=== PATIENT | female | born 1950 | race Caucasian/White ===

== ENCOUNTER 2017-09-28 13:22 | Inpatient (IN) | payer MEDICARE, MEDICAID ==
[~2017-09-28] VITALS: Ht 149.9 cm; Wt 95.0 kg
[2017-09-28 14:12] LABS: BASOPHILS % (AUTO) 0.4 % (0-1); EOSINOPHILS # (AUTO) 0.5 X10'3 (0-0.9); EOSINOPHILS % (AUTO) 5.4 % (0-6); HEMATOCRIT 25.1 % (35.0-45.0); HEMOGLOBIN 8.4 g/dl (12.0-16.0); LYMPHOCYTES # (AUTO) 2.4 X10'3 (1.1-4.8); MEAN CORPUSCULAR HEMOGLOBIN 27.7 PG (27.0-31.0); MEAN CORPUSCULAR HGB CONC 33.4 % (33.0-36.5); MEAN CORPUSCULAR VOLUME 82.8 FL (78-98); MEAN PLATELET VOLUME 7.1 FL (7.4-10.4); MONOCYTES # (AUTO) 0.7 X10'3 (0-0.9); MONOCYTES % (AUTO) 6.6 % (2-12); NEUTROPHILS # (AUTO) 6.3 X10'3 (1.8-7.7); NEUTROPHILS % (AUTO) 63.6 % (42-75); PLATELET COUNT 310 X10'3 (140-440); RED BLOOD COUNT 3.03 X10'6 (4.20-5.60); WHITE BLOOD COUNT 9.9 X10'3 (4.5-11.0)
[2017-09-28] MEDS ORDERED: normal saline 1000ML IV soln IVB ONE (14:20)
[2017-09-28 14:32] LABS: ALANINE AMINOTRANSFERASE 17 U/L (12-78); ALBUMIN 3.2 G/DL (3.4-5.0); ALBUMIN/GLOBULIN RATIO 0.9 (1.1-1.5); ALKALINE PHOSPHATASE 59 IU/L (46-116); ANION GAP 7 (8-16); ASPARTATE AMINO TRANSFERASE 11 U/L (10-37); BILIRUBIN,TOTAL 0.6 MG/DL (0.1-1.0); BLOOD UREA NITROGEN 14 MG/DL (7-18); BUN/CREATININE RATIO 16.1 (6.6-38.0); CALCIUM 8.3 MG/DL (8.5-10.1); CHLORIDE 105 MMOL/L (99-107); CREATININE 0.87 MG/DL (0.40-0.90); GLUCOSE 101 MG/DL (70-104); SODIUM 141 MMOL/L (135-145); TOTAL CARBON DIOXIDE 29.5 MMOL/L (24-32); TOTAL PROTEIN 6.9 G/DL (6.4-8.2); eGFR 65 ML/MIN
[2017-09-28 14:43] LABS: ETHANOL < 0.010 GM/DL (0.0-0.010)
[2017-09-28 15:40] LABS: COLOR,URINE YELLOW (Yellow); GLUCOSE, URINE NEGATIVE (Neg); KETONES,URINE NEGATIVE (Neg); LEUKOCYTE ESTERASE ,URINE NEGATIVE (Neg); NITRITES, URINE NEGATIVE (Neg); OCCULT BLOOD,URINE SMALL (Neg); PH,URINE 5.5 (4.8-8.0); PROTEIN,URINE NEGATIVE (Neg); UROBILINOGEN,URINE 0.2 E.U/dL (0.2-1.0)
[2017-09-28 15:41] LABS: CLARITY,URINE SLIGHTLY CLOUDY (Clear); UA COLLECTION TYPE STRAIGHT CATH
[2017-09-28 15:52] LABS: URINE AMPHETAMINE SCREEN NEGATIVE (Neg); URINE BARBITUATE SCREEN NEGATIVE (Neg); URINE BENZODIAZEPINES SCREEN NEGATIVE (Neg); URINE CANNABINOID SCREEN NEGATIVE (Neg); URINE COCAINE SCREEN NEGATIVE (Neg); URINE METHADONE SCREEN NEGATIVE (Neg); URINE OPIATE SCREEN NEGATIVE (Neg); URINE PHENCYCLIDINE SCREEN NEGATIVE (Neg)
[2017-09-28 16:00] LABS: MUCUS STRANDS FEW /LPF (Neg); SQUAMOUS EPITHELIAL CELL,UR FEW /LPF (FEW)
[2017-09-28 16:01] LABS: BACTERIA,URINE FEW /HPF (Neg); HYALINE CASTS 0-3 /LPF (NEGATIVE); RBC,URINE 0-2 /HPF (0-2); WBC,URINE 0-4 /HPF (0-4)
[2017-09-28] MEDS ORDERED: LORazepam 2 mg/ml vial IV ONE (16:40)
[2017-09-28] MEDS ORDERED: gadopentetate dimeglumine 7.5 MMOL/15 ML syringe ONE (18:10)
[2017-09-28] MEDS ORDERED: aspirin 81mg tab.chew PO ONE (18:40)
[2017-09-28] MEDS ORDERED: ondansetron/PF 4mg/2ml inj IV PRN (20:50)
[2017-09-28] MEDS ORDERED: mag hydrox/Alum hydrox/simeth 30ml oral suspension PO PRN (20:50)
[2017-09-28] MEDS ORDERED: acetaminophen 325mg tablet PO PRN (20:50)
[2017-09-28] MEDS ORDERED: magnesium hydroxide 30ml (MOM) UD suspension PO PRN (20:50)
[2017-09-28] MEDS ORDERED: normal saline 1000ml 1,000 ML IV SCH (20:50)
[2017-09-28] MEDS ORDERED: LOSA25TA96 PO (21:19)
[2017-09-28] MEDS ORDERED: ASPI-920 PO (21:19)
[2017-09-28] MEDS ORDERED: FERR325T28 PO (21:19)
[2017-09-28 22:00] VITALS: BP 171/80
[2017-09-28 23:20] LABS: HEMOGLOBIN 7.4 g/dl (12.0-16.0); MEAN CORPUSCULAR HEMOGLOBIN 27.8 PG (27.0-31.0); MEAN CORPUSCULAR HGB CONC 34.1 % (33.0-36.5); MEAN CORPUSCULAR VOLUME 81.6 FL (78-98); MEAN PLATELET VOLUME 6.9 FL (7.4-10.4); PLATELET COUNT 257 X10'3 (140-440); RED BLOOD COUNT 2.67 X10'6 (4.20-5.60); RED CELL DISTRIBUTION WIDTH 14.8 % (11.5-14.5); WHITE BLOOD COUNT 8.3 X10'3 (4.5-11.0)
[2017-09-28 23:51] LABS: HEMATOCRIT 21.8 % (35.0-45.0)
[2017-09-29] VITALS (16 sets, daily range): BP systolic 141–189; BP diastolic 68–97
[2017-09-29 06:24] LABS: BASOPHILS % (AUTO) 0.7 % (0-1); EOSINOPHILS # (AUTO) 0.5 X10'3 (0-0.9); EOSINOPHILS % (AUTO) 6.3 % (0-6); HEMOGLOBIN 7.2 g/dl (12.0-16.0); LYMPHOCYTES # (AUTO) 1.8 X10'3 (1.1-4.8); LYMPHOCYTES % (AUTO) 24.4 % (21-51); MEAN CORPUSCULAR HEMOGLOBIN 28.1 PG (27.0-31.0); MEAN CORPUSCULAR HGB CONC 33.9 % (33.0-36.5); MEAN CORPUSCULAR VOLUME 82.8 FL (78-98); MEAN PLATELET VOLUME 7.2 FL (7.4-10.4); MONOCYTES # (AUTO) 0.5 X10'3 (0-0.9); NEUTROPHILS # (AUTO) 4.5 X10'3 (1.8-7.7); NEUTROPHILS % (AUTO) 61.6 % (42-75); PLATELET COUNT 241 X10'3 (140-440); RED BLOOD COUNT 2.56 X10'6 (4.20-5.60); RED CELL DISTRIBUTION WIDTH 14.9 % (11.5-14.5); WHITE BLOOD COUNT 7.4 X10'3 (4.5-11.0)
[2017-09-29 06:30] LABS: HEMATOCRIT 21.2 % (35.0-45.0)
[2017-09-29 06:31] LABS: ALANINE AMINOTRANSFERASE 9 U/L (12-78); ALBUMIN 2.7 G/DL (3.4-5.0); ALBUMIN/GLOBULIN RATIO 0.8 (1.1-1.5); ALKALINE PHOSPHATASE 56 IU/L (46-116); ANION GAP 5 (8-16); ASPARTATE AMINO TRANSFERASE 13 U/L (10-37); BILIRUBIN,TOTAL 0.6 MG/DL (0.1-1.0); BLOOD UREA NITROGEN 12 MG/DL (7-18); BUN/CREATININE RATIO 15.2 (6.6-38.0); CALCIUM 8.2 MG/DL (8.5-10.1); CHLORIDE 108 MMOL/L (99-107); CHOL/HDL RATIO 3.9 (0.00-4.99); CHOLESTEROL 161 MG/DL (0-200); CREATININE 0.79 MG/DL (0.40-0.90); GLUCOSE 98 MG/DL (70-104); HDL CHOLESTEROL 41 MG/DL (35-60); LDL CHOLESTEROL 110 MG/DL (50-100); POTASSIUM 3.7 MMOL/L (3.5-5.1); SODIUM 142 MMOL/L (135-145); TOTAL PROTEIN 6.1 G/DL (6.4-8.2); TRIGLYCERIDES 102 MG/DL (20-135); eGFR 72 ML/MIN
[2017-09-29 07:17] LABS: HEMOGLOBIN A1C 5.7 % (4.5-6.2)
[2017-09-29] MEDS ORDERED: heparin, porcine 5000 units/ml vial SQ SCH (08:00)
[2017-09-29 11:32] LABS: HEMOGLOBIN 7.5 g/dl (12.0-16.0); MEAN CORPUSCULAR HGB CONC 34.6 % (33.0-36.5); MEAN CORPUSCULAR VOLUME 80.9 FL (78-98); MEAN PLATELET VOLUME 6.6 FL (7.4-10.4); PLATELET COUNT 267 X10'3 (140-440); RED BLOOD COUNT 2.68 X10'6 (4.20-5.60); RED CELL DISTRIBUTION WIDTH 14.6 % (11.5-14.5); WHITE BLOOD COUNT 8.3 X10'3 (4.5-11.0)
[2017-09-29 11:37] LABS: HEMATOCRIT 21.6 % (35.0-45.0)
[2017-09-29] MEDS: ferrous sulfate 325mg tablet PO SCH (18:24)
[2017-09-29] MEDS ORDERED: losartan 25mg tablet PO ONE (22:46)
[2017-09-30] VITALS (8 sets, daily range): BP systolic 151–196; BP diastolic 74–100
[2017-09-30 06:28] LABS: BASOPHILS # (AUTO) 0.1 X10'3 (0-0.2); BASOPHILS % (AUTO) 0.7 % (0-1); EOSINOPHILS # (AUTO) 0.6 X10'3 (0-0.9); EOSINOPHILS % (AUTO) 7.1 % (0-6); HEMATOCRIT 29.4 % (35.0-45.0); LYMPHOCYTES # (AUTO) 1.6 X10'3 (1.1-4.8); LYMPHOCYTES % (AUTO) 19.1 % (21-51); MEAN CORPUSCULAR HEMOGLOBIN 28.6 PG (27.0-31.0); MEAN CORPUSCULAR HGB CONC 33.9 % (33.0-36.5); MEAN CORPUSCULAR VOLUME 84.2 FL (78-98); MEAN PLATELET VOLUME 7.5 FL (7.4-10.4); MONOCYTES # (AUTO) 0.6 X10'3 (0-0.9); MONOCYTES % (AUTO) 6.5 % (2-12); NEUTROPHILS # (AUTO) 5.7 X10'3 (1.8-7.7); NEUTROPHILS % (AUTO) 66.6 % (42-75); PLATELET COUNT 246 X10'3 (140-440); RED BLOOD COUNT 3.49 X10'6 (4.20-5.60); RED CELL DISTRIBUTION WIDTH 14.5 % (11.5-14.5); WHITE BLOOD COUNT 8.6 X10'3 (4.5-11.0)
[2017-09-30 06:40] LABS: ALANINE AMINOTRANSFERASE 14 U/L (12-78); ALBUMIN/GLOBULIN RATIO 0.9 (1.1-1.5); ALKALINE PHOSPHATASE 67 IU/L (46-116); ANION GAP 8 (8-16); ASPARTATE AMINO TRANSFERASE 14 U/L (10-37); BILIRUBIN,TOTAL 1.4 MG/DL (0.1-1.0); BLOOD UREA NITROGEN 10 MG/DL (7-18); BUN/CREATININE RATIO 11.9 (6.6-38.0); CALCIUM 8.2 MG/DL (8.5-10.1); CHLORIDE 105 MMOL/L (99-107); CREATININE 0.84 MG/DL (0.40-0.90); GLUCOSE 101 MG/DL (70-104); POTASSIUM 3.5 MMOL/L (3.5-5.1); SODIUM 142 MMOL/L (135-145); TOTAL CARBON DIOXIDE 28.7 MMOL/L (24-32); TOTAL PROTEIN 6.5 G/DL (6.4-8.2); eGFR 67 ML/MIN
[2017-09-30] MEDS: losartan 25mg tablet PO SCH (07:05)
[2017-09-30] MEDS: atorvastatin 20mg tablet PO SCH (07:05)
[2017-09-30] MEDS: ferrous sulfate 325mg tablet PO SCH ×3 (07:05→17:39)
[2017-09-30] MEDS: aspirin 81mg tab.chew PO SCH (07:46)
[2017-09-30] MEDS ORDERED: lisinopril 5mg tablet PO SCH (08:00)
[2017-09-30 08:23] LABS: PARTIAL THROMBOPLASTIN TIME 25 SECONDS (22-32); PROTHROMBIN TIME 10.2 SECONDS (9.0-12.0)
[2017-09-30] MEDS ORDERED: metoprolol tartrate 25mg tablet PO STA (17:49)
[2017-09-30] MEDS: metoprolol tartrate 25mg tablet PO SCH (20:53)
[2017-10-01 02:00] VITALS: BP 191/87
[2017-10-01 05:59] LABS: BASOPHILS % (AUTO) 0.5 % (0-1); EOSINOPHILS # (AUTO) 0.7 X10'3 (0-0.9); EOSINOPHILS % (AUTO) 8.3 % (0-6); HEMATOCRIT 29.9 % (35.0-45.0); HEMOGLOBIN 10.2 g/dl (12.0-16.0); LYMPHOCYTES # (AUTO) 1.6 X10'3 (1.1-4.8); LYMPHOCYTES % (AUTO) 18.4 % (21-51); MEAN CORPUSCULAR HEMOGLOBIN 28.7 PG (27.0-31.0); MEAN CORPUSCULAR HGB CONC 34.1 % (33.0-36.5); MEAN CORPUSCULAR VOLUME 84.2 FL (78-98); MEAN PLATELET VOLUME 7.4 FL (7.4-10.4); MONOCYTES # (AUTO) 0.6 X10'3 (0-0.9); MONOCYTES % (AUTO) 7.1 % (2-12); NEUTROPHILS # (AUTO) 5.7 X10'3 (1.8-7.7); NEUTROPHILS % (AUTO) 65.7 % (42-75); PLATELET COUNT 247 X10'3 (140-440); RED BLOOD COUNT 3.55 X10'6 (4.20-5.60); WHITE BLOOD COUNT 8.7 X10'3 (4.5-11.0)
[2017-10-01 06:00] VITALS: BP 180/85
[2017-10-01 07:01] LABS: ALANINE AMINOTRANSFERASE 17 U/L (12-78); ALBUMIN 2.9 G/DL (3.4-5.0); ALBUMIN/GLOBULIN RATIO 0.8 (1.1-1.5); ANION GAP 10 (8-16); ASPARTATE AMINO TRANSFERASE 16 U/L (10-37); BILIRUBIN,TOTAL 1.1 MG/DL (0.1-1.0); BLOOD UREA NITROGEN 13 MG/DL (7-18); BUN/CREATININE RATIO 14.3 (6.6-38.0); CALCIUM 8.3 MG/DL (8.5-10.1); CHLORIDE 106 MMOL/L (99-107); CREATININE 0.91 MG/DL (0.40-0.90); GLUCOSE 111 MG/DL (70-104); POTASSIUM 3.7 MMOL/L (3.5-5.1); SODIUM 142 MMOL/L (135-145); TOTAL CARBON DIOXIDE 25.8 MMOL/L (24-32); TOTAL PROTEIN 6.4 G/DL (6.4-8.2); eGFR 61 ML/MIN
[2017-10-01 07:02] LABS: ALKALINE PHOSPHATASE 69 IU/L (46-116)
[2017-10-01] MEDS: aspirin 81mg tab.chew PO SCH (08:41)
[2017-10-01] MEDS: losartan 25mg tablet PO SCH (08:41)
[2017-10-01] MEDS: metoprolol tartrate 25mg tablet PO SCH ×2 (08:41→19:00)
[2017-10-01] MEDS: ferrous sulfate 325mg tablet PO SCH ×3 (08:41→19:00)
[2017-10-01] MEDS: atorvastatin 20mg tablet PO SCH (08:41)
[2017-10-01 10:30] VITALS: BP 160/80
[2017-10-01] MEDS: diphenhydrAMINE 25mg capsule PO PRN (11:57)
[2017-10-01 18:00] VITALS: BP 155/68
[2017-10-01 22:00] VITALS: BP 164/72
[2017-10-02 02:00] VITALS: BP 181/88
[2017-10-02 06:00] VITALS: BP 155/69
[2017-10-02 06:27] LABS: BASOPHILS # (AUTO) 0.1 X10'3 (0-0.2); BASOPHILS % (AUTO) 0.8 % (0-1); EOSINOPHILS # (AUTO) 0.7 X10'3 (0-0.9); EOSINOPHILS % (AUTO) 8.6 % (0-6); HEMOGLOBIN 10.1 g/dl (12.0-16.0); LYMPHOCYTES # (AUTO) 1.6 X10'3 (1.1-4.8); LYMPHOCYTES % (AUTO) 20.2 % (21-51); MEAN CORPUSCULAR HEMOGLOBIN 28.5 PG (27.0-31.0); MEAN CORPUSCULAR HGB CONC 33.7 % (33.0-36.5); MEAN CORPUSCULAR VOLUME 84.5 FL (78-98); MEAN PLATELET VOLUME 7.4 FL (7.4-10.4); MONOCYTES # (AUTO) 0.5 X10'3 (0-0.9); MONOCYTES % (AUTO) 6.7 % (2-12); NEUTROPHILS % (AUTO) 63.7 % (42-75); PLATELET COUNT 267 X10'3 (140-440); RED BLOOD COUNT 3.55 X10'6 (4.20-5.60); RED CELL DISTRIBUTION WIDTH 15.1 % (11.5-14.5); WHITE BLOOD COUNT 7.9 X10'3 (4.5-11.0)
[2017-10-02 07:17] LABS: ALANINE AMINOTRANSFERASE 19 U/L (12-78); ALBUMIN 2.9 G/DL (3.4-5.0); ALBUMIN/GLOBULIN RATIO 0.8 (1.1-1.5); ALKALINE PHOSPHATASE 62 IU/L (46-116); ANION GAP 11 (8-16); ASPARTATE AMINO TRANSFERASE 18 U/L (10-37); BILIRUBIN,TOTAL 1.1 MG/DL (0.1-1.0); BLOOD UREA NITROGEN 13 MG/DL (7-18); BUN/CREATININE RATIO 16.7 (6.6-38.0); CALCIUM 8.2 MG/DL (8.5-10.1); CHLORIDE 105 MMOL/L (99-107); CREATININE 0.78 MG/DL (0.40-0.90); GLUCOSE 92 MG/DL (70-104); POTASSIUM 3.7 MMOL/L (3.5-5.1); SODIUM 142 MMOL/L (135-145); TOTAL CARBON DIOXIDE 26.5 MMOL/L (24-32); TOTAL PROTEIN 6.4 G/DL (6.4-8.2); eGFR 73 ML/MIN
[2017-10-02] MEDS: atorvastatin 20mg tablet PO SCH (08:47)
[2017-10-02] MEDS: ferrous sulfate 325mg tablet PO SCH ×2 (08:48→12:00)
[2017-10-02] MEDS: losartan 25mg tablet PO SCH (08:48)
[2017-10-02] MEDS: aspirin 81mg tab.chew PO SCH (08:49)
[2017-10-02] MEDS: metoprolol tartrate 25mg tablet PO SCH (08:49)
[2017-10-02] MEDS: diphenhydrAMINE 25mg capsule PO PRN (08:53)
[2017-10-02 10:00] VITALS: BP 155/47
[2017-10-02] MEDS ORDERED: FERR325T28 PO (12:01)
[2017-10-02] MEDS ORDERED: CLOP75TA15 PO (12:01)
[2017-10-02] MEDS ORDERED: METO25TA6 PO (12:01)
[2017-10-02] MEDS ORDERED: LOSA25TA96 PO (12:01)
[2017-10-02] MEDS ORDERED: ATOR20TA66 PO (12:01)
== END 2017-10-02 13:43 | disposition home or self-care (01) | DRG 65 ==
LOC: ER 13:22 → ED HOLD 20:50 → ORTHO 4S 21:30
PROVIDERS: ADMIT Internal Medicine; ATTEND Internal Medicine
PROC: BW38YZZ Magnetic Resonance Imaging (MRI) of Head using Other Contrast (ICD-10-PCS; 2017-09-28)
PROC: 30233N1 Transfusion of Nonautologous Red Blood Cells into Peripheral Vein, Percutaneous Approach (ICD-10-PCS; principal; 2017-09-29)
DX: I63.512 Cerebral infarction due to unspecified occlusion or stenosis of left middle cerebral artery (principal); Z68.41 Body mass index [BMI] 40.0-44.9, adult; D68.59 Other primary thrombophilia; E66.01 Morbid (severe) obesity due to excess calories; D62 Acute posthemorrhagic anemia; R19.00 Intra-abdominal and pelvic swelling, mass and lump, unspecified site; E11.9 Type 2 diabetes mellitus without complications; I10 Essential (primary) hypertension; N93.8 Other specified abnormal uterine and vaginal bleeding; Z79.82 Long term (current) use of aspirin; Z79.899 Other long term (current) drug therapy
CPT/HCPCS: 36415; 70450; 70551; 70553; 71045; 80053; 80061; 80305; 80320; 81001; 82140; 82948; 83036; 85025; 85027; 85610; 85730; 86885; 86900; 86901; 86920; 87070; 92616; 93306; 93880; 96360; 97116; 97161; 99285; A9579; J2060; J7030; P9016; Q0163

== ENCOUNTER 2017-10-15 10:25 | Emergency (ER) | payer MEDICARE, MEDICAID ==
[~2017-10-15] VITALS: Ht 149.9 cm; Wt 95.2 kg
[~2017-10-15 10:25] MED LIST: ATOR20TA66 PO; CLOP75TA15 PO; FERR325T28 PO; LOSA25TA96 PO; METO25TA6 PO
[2017-10-15 13:09] LABS: BASOPHILS # (AUTO) 0.1 X10'3 (0-0.2); BASOPHILS % (AUTO) 0.7 % (0-1); EOSINOPHILS # (AUTO) 0.4 X10'3 (0-0.9); EOSINOPHILS % (AUTO) 4.2 % (0-6); HEMATOCRIT 32.6 % (35.0-45.0); HEMOGLOBIN 10.7 g/dl (12.0-16.0); LYMPHOCYTES # (AUTO) 1.7 X10'3 (1.1-4.8); LYMPHOCYTES % (AUTO) 18.2 % (21-51); MEAN CORPUSCULAR HEMOGLOBIN 28.2 PG (27.0-31.0); MEAN CORPUSCULAR HGB CONC 32.8 % (33.0-36.5); MEAN CORPUSCULAR VOLUME 86.1 FL (78-98); MEAN PLATELET VOLUME 7.1 FL (7.4-10.4); MONOCYTES # (AUTO) 0.5 X10'3 (0-0.9); MONOCYTES % (AUTO) 5.3 % (2-12); NEUTROPHILS # (AUTO) 6.6 X10'3 (1.8-7.7); NEUTROPHILS % (AUTO) 71.6 % (42-75); PLATELET COUNT 274 X10'3 (140-440); RED BLOOD COUNT 3.79 X10'6 (4.20-5.60); RED CELL DISTRIBUTION WIDTH 15.8 % (11.5-14.5); WHITE BLOOD COUNT 9.2 X10'3 (4.5-11.0)
[2017-10-15] MEDS ORDERED: lisinopril 10 MG tablet PO ONE (13:15)
[2017-10-15] MEDS ORDERED: captoPRIL 25mg tablet PO ONE (13:15)
[2017-10-15 13:31] LABS: ALANINE AMINOTRANSFERASE 15 U/L (12-78); ALBUMIN 3.2 G/DL (3.4-5.0); ALBUMIN/GLOBULIN RATIO 0.8 (1.1-1.5); ALKALINE PHOSPHATASE 59 IU/L (46-116); ANION GAP 4 (8-16); ASPARTATE AMINO TRANSFERASE 14 U/L (10-37); BILIRUBIN,TOTAL 1.3 MG/DL (0.1-1.0); BLOOD UREA NITROGEN 14 MG/DL (7-18); BUN/CREATININE RATIO 17.3 (6.6-38.0); CALCIUM 8.7 MG/DL (8.5-10.1); CHLORIDE 104 MMOL/L (99-107); CREATININE 0.81 MG/DL (0.40-0.90); GLUCOSE 126 MG/DL (70-104); POTASSIUM 4.3 MMOL/L (3.5-5.1); SODIUM 140 MMOL/L (135-145); TOTAL CARBON DIOXIDE 32.3 MMOL/L (24-32); TOTAL PROTEIN 7.2 G/DL (6.4-8.2); eGFR 70 ML/MIN
[2017-10-15] MEDS ORDERED: hydrALAZINE 25 MG tablet PO ONE (14:40)
[2017-10-15] MEDS ORDERED: furosemide 20MG tablet PO ONE (15:10)
[2017-10-15] MEDS ORDERED: LISI1TAB13 PO (15:50)
[2017-10-15] MEDS ORDERED: hydrALAZINE 25 MG tablet PO SCH (16:00)
[2017-10-15 16:05] VITALS: BP 166/79
== END 2017-10-15 16:11 | disposition home or self-care (01) ==
LOC: ER 10:25
DX: I10 Essential (primary) hypertension (principal); E78.00 Pure hypercholesterolemia, unspecified; E11.9 Type 2 diabetes mellitus without complications; Z86.73 Personal history of transient ischemic attack (TIA), and cerebral infarction without residual deficits; Z79.899 Other long term (current) drug therapy
CPT/HCPCS: 36415; 71045; 80053; 83735; 83880; 84484; 85025; 93005; 99285

== ENCOUNTER 2018-06-23 09:13 | Day surgery (SDC) | payer MEDICARE, MEDICAID ==
[~2018-06-23] VITALS: Ht 149.9 cm; Wt 96.7 kg
[~2018-06-23 09:13] MED LIST changes: +LISI1TAB13 PO
[2018-06-23 10:00] VITALS: BP 164/72
[2018-06-23] MEDS ORDERED: normal saline 1000ml 1,000 ML IV PRN (10:00)
[2018-06-23] MEDS ORDERED: HYDR25TA4 PO (14:58)
[2018-06-23] MEDS ORDERED: ASPI81TA52 PO (14:59)
[2018-06-23] MEDS ORDERED: ATOR80TA PO (15:00)
[2018-06-23] MEDS ORDERED: CLOP75TA16 PO (15:01)
[2018-06-23] MEDS ORDERED: LOSA50TA3 PO (15:02)
[2018-06-23] MEDS ORDERED: METO25TA6 PO (15:03)
== END 2018-06-23 11:05 | disposition home or self-care (01) ==
LOC: SSTAY O 09:13
PROVIDERS: ATTEND Radiology Diagnostic Radiology
DX: C54.1 Malignant neoplasm of endometrium (principal); Z53.8 Procedure and treatment not carried out for other reasons; I10 Essential (primary) hypertension; E11.9 Type 2 diabetes mellitus without complications; E78.00 Pure hypercholesterolemia, unspecified; Z90.710 Acquired absence of both cervix and uterus; Z79.01 Long term (current) use of anticoagulants; Z86.69 Personal history of other diseases of the nervous system and sense organs; Z87.891 Personal history of nicotine dependence; Z79.82 Long term (current) use of aspirin; Z79.899 Other long term (current) drug therapy; Z98.890 Other specified postprocedural states
CPT/HCPCS: J7030

== ENCOUNTER 2018-07-17 11:22 | Emergency (ER) | payer MEDICARE, MEDICAID ==
[~2018-07-17] VITALS: Ht 149.9 cm; Wt 90.0 kg
[~2018-07-17 11:22] MED LIST changes: +ASPI81TA52 PO; -ATOR20TA66 PO; +ATOR80TA PO; -CLOP75TA15 PO; +CLOP75TA16 PO; -FERR325T28 PO; +HYDR25TA4 PO; -LISI1TAB13 PO; -LOSA25TA96 PO; +LOSA50TA3 PO
[2018-07-17] MEDS ORDERED: normal saline 1000ML IV soln IVB ONE (11:45)
[2018-07-17 11:55] LABS: BASOPHILS % (AUTO) 0.1 % (0-1); EOSINOPHILS # (AUTO) 0.2 X10'3 (0-0.9); EOSINOPHILS % (AUTO) 1.4 % (0-6); HEMATOCRIT 33.6 % (35.0-45.0); HEMOGLOBIN 10.9 g/dl (12.0-16.0); LYMPHOCYTES # (AUTO) 0.7 X10'3 (1.1-4.8); LYMPHOCYTES % (AUTO) 5.2 % (21-51); MEAN CORPUSCULAR HEMOGLOBIN 27.5 PG (27.0-31.0); MEAN CORPUSCULAR HGB CONC 32.4 % (33.0-36.5); MEAN CORPUSCULAR VOLUME 84.9 FL (78-98); MEAN PLATELET VOLUME 7.7 FL (7.4-10.4); MONOCYTES % (AUTO) 0.3 % (2-12); PLATELET COUNT 154 X10'3 (140-440); RED BLOOD COUNT 3.96 X10'6 (4.20-5.60); RED CELL DISTRIBUTION WIDTH 14.8 % (11.5-14.5); WHITE BLOOD COUNT 13.9 X10'3 (4.5-11.0)
[2018-07-17 12:11] LABS: ALANINE AMINOTRANSFERASE 16 U/L (12-78); ALBUMIN 2.9 G/DL (3.4-5.0); ALBUMIN/GLOBULIN RATIO 0.9 (1.1-1.5); ALKALINE PHOSPHATASE 67 IU/L (46-116); ANION GAP 5 (8-16); ASPARTATE AMINO TRANSFERASE 20 U/L (10-37); BILIRUBIN,TOTAL 0.8 MG/DL (0.1-1.0); BLOOD UREA NITROGEN 24 MG/DL (7-18); BUN/CREATININE RATIO 20.3 (6.6-38.0); CHLORIDE 102 MMOL/L (99-107); CREATININE 1.18 MG/DL (0.40-0.90); GLUCOSE 222 MG/DL (70-104); SODIUM 138 MMOL/L (135-145); TOTAL CARBON DIOXIDE 31.4 MMOL/L (24-32); TOTAL PROTEIN 6.1 G/DL (6.4-8.2); eGFR 45 ML/MIN
[2018-07-17] MEDS ORDERED: potassium Cl 20 mEq SR tablet PO STA (12:18)
[2018-07-17] MEDS ORDERED: HYDROcodone/acetaminophen 5mg/325mg tablet PO ONE (12:30)
[2018-07-17 13:19] LABS: CLARITY,URINE CLEAR (Clear); COLOR,URINE YELLOW (Yellow); GLUCOSE, URINE NEGATIVE (Neg); KETONES,URINE NEGATIVE (Neg); LEUKOCYTE ESTERASE ,URINE MODERATE (Neg); NITRITES, URINE NEGATIVE (Neg); OCCULT BLOOD,URINE NEGATIVE (Neg); PH,URINE 6.5 (4.8-8.0); PROTEIN,URINE NEGATIVE (Neg); UROBILINOGEN,URINE 0.2 E.U/dL (0.2-1.0)
[2018-07-17 13:23] LABS: UA COLLECTION TYPE CLN CATCH MIDSTREAM
[2018-07-17] MEDS ORDERED: ACET-3067 PO (13:31)
[2018-07-17] MEDS ORDERED: NITR100C6 PO (13:31)
[2018-07-17 13:38] LABS: RBC,URINE NONE SEEN /HPF (0-2); WBC,URINE 30-50 /HPF (0-4)
[2018-07-17 13:39] LABS: BACTERIA,URINE 2+ /HPF (Neg); SQUAMOUS EPITHELIAL CELL,UR MODERATE /LPF (FEW)
[2018-07-17 14:55] VITALS: BP 120/68
== END 2018-07-17 14:57 | disposition home or self-care (01) ==
LOC: ER 11:22
DX: E87.6 Hypokalemia (principal); N39.0 Urinary tract infection, site not specified; R53.1 Weakness; E78.00 Pure hypercholesterolemia, unspecified; I10 Essential (primary) hypertension; E11.9 Type 2 diabetes mellitus without complications; Z86.73 Personal history of transient ischemic attack (TIA), and cerebral infarction without residual deficits; Z79.82 Long term (current) use of aspirin; Z79.899 Other long term (current) drug therapy
CPT/HCPCS: 36415; 70450; 71045; 80053; 81001; 85025; 87088; 93005; 99284; J7030

== ENCOUNTER 2018-08-29 11:39 | Inpatient (IN) | payer MEDICARE, MEDICAID ==
[~2018-08-29] VITALS: Ht 149.9 cm; Wt 96.4 kg
[~2018-08-29 11:39] MED LIST changes: +NITR100C6 PO
[2018-08-29 11:53] LABS: BASOPHILS % (AUTO) 0.1 % (0-1); EOSINOPHILS # (AUTO) 0.6 X10'3 (0-0.9); EOSINOPHILS % (AUTO) 4.1 % (0-6); HEMATOCRIT 28.7 % (35.0-45.0); HEMOGLOBIN 9.7 g/dl (12.0-16.0); LYMPHOCYTES % (AUTO) 7.8 % (21-51); MEAN CORPUSCULAR HEMOGLOBIN 29.2 PG (27.0-31.0); MEAN CORPUSCULAR HGB CONC 33.9 % (33.0-36.5); MEAN CORPUSCULAR VOLUME 86.2 FL (78-98); MEAN PLATELET VOLUME 7.2 FL (7.4-10.4); MONOCYTES # (AUTO) 0.1 X10'3 (0-0.9); MONOCYTES % (AUTO) 0.7 % (2-12); NEUTROPHILS # (AUTO) 11.7 X10'3 (1.8-7.7); NEUTROPHILS % (AUTO) 87.3 % (42-75); PLATELET COUNT 151 X10'3 (140-440); RED BLOOD COUNT 3.33 X10'6 (4.20-5.60); RED CELL DISTRIBUTION WIDTH 18.1 % (11.5-14.5); WHITE BLOOD COUNT 13.4 X10'3 (4.5-11.0)
[2018-08-29 12:17] LABS: ALANINE AMINOTRANSFERASE 25 U/L (12-78); ALBUMIN 3.2 G/DL (3.4-5.0); ALBUMIN/GLOBULIN RATIO 0.9 (1.1-1.5); ALKALINE PHOSPHATASE 102 IU/L (46-116); ANION GAP 13 (8-16); ASPARTATE AMINO TRANSFERASE 29 U/L (10-37); BILIRUBIN,TOTAL 1.2 MG/DL (0.1-1.0); BLOOD UREA NITROGEN 22 MG/DL (7-18); BUN/CREATININE RATIO 21.4 (6.6-38.0); CALCIUM 8.4 MG/DL (8.5-10.1); CHLORIDE 97 MMOL/L (99-107); CREATININE 1.03 MG/DL (0.40-0.90); GLUCOSE 176 MG/DL (70-104); POTASSIUM 3.4 MMOL/L (3.5-5.1); SODIUM 137 MMOL/L (135-145); TOTAL CARBON DIOXIDE 27.3 MMOL/L (24-32); TOTAL PROTEIN 6.7 G/DL (6.4-8.2); eGFR 53 ML/MIN
--- NOTE | 2018-08-29 12:20 | NUR ---
I talked To Dr. Fine regarding patient; the patient has resolved completely. Per the manager portable the patient resolved in route to ER. I also was told by the caregiver that is pt's personal support worker the patient collapsed into the chair and both of her shoulders were shaking, her eyes rolled back into head and then they were moving all over the place and could not focus. She also became weak on the right side after this event. After talking to Dr. Laughlin we changed her stroke alert to level2. I have communicated this to the nurse taking care of the patient.
[2018-08-29] MEDS ORDERED: mag hydrox/Alum hydrox/simeth 30ml oral suspension PO PRN (12:45)
[2018-08-29] MEDS ORDERED: ondansetron/PF 4mg/2ml inj IV PRN (12:45)
[2018-08-29] MEDS ORDERED: morphine 4 MG/ML inj SYRINge IV PRN ×2 (12:45)
[2018-08-29] MEDS ORDERED: acetaminophen 325mg tablet PO PRN (12:45)
[2018-08-29] MEDS ORDERED: magnesium hydroxide 30ml (MOM) UD suspension PO PRN (12:45)
[2018-08-29 13:03] LABS: INR 1.1 INR; PARTIAL THROMBOPLASTIN TIME 21 SECONDS (22-32); PROTHROMBIN TIME 10.7 SECONDS (9.0-12.0)
--- NOTE | 2018-08-29 13:13 | NUR ---
pt able to walk to restroom unassisted
[2018-08-29 13:31] LABS: HEMOGLOBIN A1C 6.9 % (4.5-6.2)
[2018-08-29] MEDS ORDERED: LORazepam 2 mg/ml vial IV ONE (14:25)
--- NOTE | 2018-08-29 14:43 | NUR ---
TO MRI VIA WHEELCHAIR WITH TECH
--- NOTE | 2018-08-29 15:15 | NUR ---
Received report from Iva SANCHEZ. Awaiting patient
[2018-08-29 15:50] VITALS: BP 144/92
--- NOTE | 2018-08-29 15:50 | NUR ---
Patient arrived to floor. VSS. daughter at bedside.
[2018-08-29] MEDS: normal saline 1000ml 1,000 ML IV SCH (16:00)
[2018-08-29 16:09] VITALS: BP 144/92
[2018-08-29] MEDS ORDERED: HYDR-4383 PO (17:40)
[2018-08-29] MEDS ORDERED: LORA10CA9 PO (17:40)
[2018-08-29 18:00] VITALS: BP 152/81
[2018-08-29 18:15] LABS: CLARITY,URINE CLEAR (Clear); COLOR,URINE STRAW (Yellow); GLUCOSE, URINE NEGATIVE (Neg); KETONES,URINE NEGATIVE (Neg); LEUKOCYTE ESTERASE ,URINE SMALL (Neg); NITRITES, URINE NEGATIVE (Neg); OCCULT BLOOD,URINE NEGATIVE (Neg); PH,URINE 6.5 (4.8-8.0); PROTEIN,URINE NEGATIVE (Neg); UROBILINOGEN,URINE 0.2 E.U/dL (0.2-1.0)
--- NOTE | 2018-08-29 18:23 | NUR ---
Problems reprioritized. Patient report given, questions answered & plan of care reviewed with LAURA Green.
[2018-08-29 18:24] LABS: MUCUS STRANDS FEW /LPF (Neg); SQUAMOUS EPITHELIAL CELL,UR FEW /LPF (FEW); TRANSITIONAL EPI CELLS,URINE FEW /HPF; UA COLLECTION TYPE CLN CATCH MIDSTREAM
[2018-08-29 18:25] LABS: BACTERIA,URINE 1+ /HPF (Neg); RBC,URINE 0-2 /HPF (0-2); WBC CLUMPS,URINE FEW /HPF (NEGATIVE)
--- NOTE | 2018-08-29 18:25 | NUR ---
Received report from Angela SANCHEZ, assumed care of patient.
[2018-08-29 20:00] VITALS: BP_SYST 137; BP_SYST 142; BP_SYST 144; BP_DIAS 78; BP_DIAS 81
[2018-08-29] MEDS: loratadine 10mg tablet PO SCH (20:35)
--- NOTE | 2018-08-29 20:38 | NUR ---
Pt denies any UTI symptoms at this time. Will continue to monitor.
[2018-08-29] MEDS ORDERED: atorvastatin 20mg tablet PO SCH (21:00)
[2018-08-29 22:00] VITALS: BP 144/78
[2018-08-30] VITALS (7 sets, daily range): BP systolic 95–154; BP diastolic 55–89
--- NOTE | 2018-08-30 04:30 | NUR ---
Notified by assistive technology specialist patient HR elevated into 150's. Checked on patient to find that she had just went to the bathroom. Patient denies being dizzy, light headed at this time. Patient resting comfortably in bed, requesting something to have a BM. Prune juice provided. Call light within reach, will continue to monitor.
--- NOTE | 2018-08-30 04:50 | NUR ---
Notified by Tele monitor that patient heart rate still elevated. EKG preformed at this time.
--- NOTE | 2018-08-30 05:00 | NUR ---
MD Das read EKG, no stemi at this time. New order received for 10 mg IV push Cardizem stat.
[2018-08-30] MEDS ORDERED: diltiazem 5mg/ml 5ml inj. IV STA ×2 (05:01→05:10)
--- NOTE | 2018-08-30 05:10 | NUR ---
Susan Rodríguez RN on Telemetry floor notified of need for IV push of Cardizem at same time tele monitor reported patient heart rate back down into low 100's. Cardizem held at this time, MD Das notified. Pt updated on heart rate and plan of care, pt verbalized understanding and is in agreement. Call light within reach of patient. Will continue to monitor.
[2018-08-30 06:07] LABS: BASOPHILS % (AUTO) 0.5 % (0-1); EOSINOPHILS # (AUTO) 0.2 X10'3 (0-0.9); HEMATOCRIT 25.5 % (35.0-45.0); HEMOGLOBIN 8.6 g/dl (12.0-16.0); LYMPHOCYTES % (AUTO) 20.4 % (21-51); MEAN CORPUSCULAR HEMOGLOBIN 28.7 PG (27.0-31.0); MEAN CORPUSCULAR HGB CONC 33.7 % (33.0-36.5); MEAN CORPUSCULAR VOLUME 85.3 FL (78-98); MEAN PLATELET VOLUME 7.8 FL (7.4-10.4); MONOCYTES # (AUTO) 0.1 X10'3 (0-0.9); MONOCYTES % (AUTO) 2.4 % (2-12); NEUTROPHILS # (AUTO) 3.6 X10'3 (1.8-7.7); NEUTROPHILS % (AUTO) 71.7 % (42-75); PLATELET COUNT 112 X10'3 (140-440); RED CELL DISTRIBUTION WIDTH 18.1 % (11.5-14.5)
[2018-08-30 06:23] LABS: ALBUMIN 2.8 G/DL (3.4-5.0); ANION GAP 8 (8-16); BLOOD UREA NITROGEN 21 MG/DL (7-18); BUN/CREATININE RATIO 24.1 (6.6-38.0); CALCIUM 8.1 MG/DL (8.5-10.1); CHLORIDE 101 MMOL/L (99-107); CHOL/HDL RATIO 2.8 (0.00-4.99); CHOLESTEROL 148 MG/DL (0-200); CREATININE 0.87 MG/DL (0.40-0.90); GLUCOSE 159 MG/DL (70-104); HDL CHOLESTEROL 52 MG/DL (35-60); LDL CHOLESTEROL 82 MG/DL (50-100); POTASSIUM 3.8 MMOL/L (3.5-5.1); SODIUM 137 MMOL/L (135-145); TOTAL CARBON DIOXIDE 28.4 MMOL/L (24-32); TRIGLYCERIDES 122 MG/DL (20-135); eGFR 65 ML/MIN
--- NOTE | 2018-08-30 06:34 | NUR ---
Report given to Fabiola SANCHEZ.
[2018-08-30 07:21] LABS: LARGE PLATELETS FEW; PLATELET ESTIMATE DECREASED
[2018-08-30] MEDS: enoxaparin 40mg/0.4ml syringe SUBCUT SCH ×2 (08:00→09:20)
[2018-08-30] MEDS: atorvastatin 20mg tablet PO SCH (09:19)
[2018-08-30] MEDS: aspirin 81mg tablet.DR PO SCH (09:19)
[2018-08-30] MEDS: clopidogrel 75mg tablet PO SCH (09:19)
[2018-08-30] MEDS: normal saline 1000ml 1,000 ML IV SCH (09:26)
[2018-08-30] MEDS ORDERED: propranolol 10mg tablet PO ONE (11:40)
[2018-08-30] MEDS ORDERED: propranolol 10mg tablet PO SCH (13:00)
--- NOTE | 2018-08-30 18:13 | NUR ---
Page to Dr. Blunt MESSAGE: [id number] Enma Turcios please call regarding pain meds, patient only takes 1/2 Norcos at home Fabiola [id number]
--- NOTE | 2018-08-30 18:47 | NUR ---
Patient in room ORTHO 4024. I have received report from LATANYA SANCHEZ and had the opportunity to ask questions and assume patient care.
--- NOTE | 2018-08-30 18:49 | NUR ---
Report to Nallely SANCHEZ
--- NOTE | 2018-08-30 18:51 | NUR ---
page to Dr. Blunt MESSAGE: [id number] Enma Turcios Can we get Neurontin, or Low dose Ultram or both Fabiola/[place] or Nallely [id number]
[2018-08-30] MEDS ORDERED: traMADol 50MG tablet PO PRN (19:25)
[2018-08-30] MEDS: metoprolol tartrate 50mg tablet PO SCH (20:47)
[2018-08-30] MEDS: loratadine 10mg tablet PO SCH (20:48)
[2018-08-30] MEDS: CefTRIAXone/D5W-Rocephin 1gm 50 ML IV SCH (21:48)
[2018-08-31] VITALS (8 sets, daily range): BP systolic 118–171; BP diastolic 49–96
--- NOTE | 2018-08-31 05:54 | NUR ---
PATIENT REFUSED ORTHOSTATIC VITALS.
--- NOTE | 2018-08-31 06:10 | NUR ---
PATIENT REPORT GIVEN TO LATANYA SANCHEZ.
[2018-08-31 06:50] LABS: BASOPHILS % (AUTO) 0.8 % (0-1); EOSINOPHILS # (AUTO) 0.2 X10'3 (0-0.9); EOSINOPHILS % (AUTO) 12.9 % (0-6); HEMATOCRIT 23.3 % (35.0-45.0); LYMPHOCYTES # (AUTO) 0.8 X10'3 (1.1-4.8); LYMPHOCYTES % (AUTO) 56.8 % (21-51); MEAN CORPUSCULAR HGB CONC 34.2 % (33.0-36.5); MEAN CORPUSCULAR VOLUME 84.8 FL (78-98); MEAN PLATELET VOLUME 7.8 FL (7.4-10.4); MONOCYTES # (AUTO) 0.1 X10'3 (0-0.9); MONOCYTES % (AUTO) 8.6 % (2-12); NEUTROPHILS # (AUTO) 0.3 X10'3 (1.8-7.7); NEUTROPHILS % (AUTO) 20.9 % (42-75); PLATELET COUNT 104 X10'3 (140-440); RED BLOOD COUNT 2.74 X10'6 (4.20-5.60); RED CELL DISTRIBUTION WIDTH 17.6 % (11.5-14.5); WHITE BLOOD COUNT 1.3 X10'3 (4.5-11.0)
[2018-08-31 06:52] LABS: ALBUMIN 2.7 G/DL (3.4-5.0); ANION GAP 7 (8-16); BLOOD UREA NITROGEN 19 MG/DL (7-18); BUN/CREATININE RATIO 25.7 (6.6-38.0); CALCIUM 7.9 MG/DL (8.5-10.1); CHLORIDE 103 MMOL/L (99-107); CREATININE 0.74 MG/DL (0.40-0.90); GLUCOSE 106 MG/DL (70-104); POTASSIUM 3.7 MMOL/L (3.5-5.1); SODIUM 139 MMOL/L (135-145); TOTAL CARBON DIOXIDE 28.8 MMOL/L (24-32); eGFR 78 ML/MIN
--- NOTE | 2018-08-31 07:33 | NUR ---
Page to Dr. Blunt 2543l Fabian Parris Cannon K is 2.9, she has scheduled 8ER and I will replace her Addendum: 08/31/18 at 1134 by Fabiola Ortega RN Wrong Patient above.
--- NOTE | 2018-08-31 07:35 | NUR ---
Page to Dr. Blunt 2229d Enma Turcios Is Neutropenic WBC of 1.3 [facility] 1338
[2018-08-31] MEDS: normal saline 1000ml 1,000 ML IV SCH ×3 (07:37→21:55)
[2018-08-31] MEDS: enoxaparin 40mg/0.4ml syringe SUBCUT SCH (08:00)
[2018-08-31] MEDS ORDERED: HYDROchlorothiazide 25mg tablet PO SCH (08:00)
[2018-08-31] MEDS: CefTRIAXone/D5W-Rocephin 1gm 50 ML IV SCH (09:00)
[2018-08-31] MEDS: atorvastatin 20mg tablet PO SCH (09:00)
[2018-08-31] MEDS: aspirin 81mg tablet.DR PO SCH (09:00)
[2018-08-31] MEDS: metoprolol tartrate 50mg tablet PO SCH ×2 (09:01→21:26)
[2018-08-31] MEDS: clopidogrel 75mg tablet PO SCH (09:01)
[2018-08-31] MEDS: HYDROchlorothiazide 12.5mg capsule PO SCH (09:01)
[2018-08-31] MEDS: losartan 50mg tablet PO SCH (09:01)
[2018-08-31 10:55] LABS: TOTAL CELLS COUNTED 100
[2018-08-31 10:56] LABS: ANISOCYTOSIS 2+; PLATELET ESTIMATE DECREASED; POIKILOCYTOSIS FEW
--- NOTE | 2018-08-31 18:20 | NUR ---
Problems reprioritized. Patient report given, questions answered & plan of care reviewed with Nallely SANCHEZ.
[2018-08-31] MEDS ORDERED: levoFLOXACIN 500mg tablet PO ONE (19:05)
[2018-08-31] MEDS: filgrastim 300mcg inj SQ ONE (19:10)
[2018-08-31] MEDS: loratadine 10mg tablet PO SCH (21:23)
--- NOTE | 2018-08-31 21:49 | NUR ---
PATIENT REFUSED NEUPOGEN. NOTIFIED HOSPITALIST. PATIENT WANTS TO TAKE IT IN THE MORNING. STATES THAT SHE DOESN'T WANT TO TAKE ANY NEW MEDICATIONS RIGHT BEFORE BEDTIME.
[2018-09-01] MEDS: normal saline 1000ml 1,000 ML IV SCH (02:50)
[2018-09-01] MEDS: filgrastim 300mcg inj SQ ONE (05:44)
--- NOTE | 2018-09-01 05:53 | NUR ---
NEUPOGEN GIVEN AT 0544.
[2018-09-01 06:00] VITALS: BP 154/67
--- NOTE | 2018-09-01 06:35 | NUR ---
PATIENT REPORT GIVEN TO JAZ SANCHEZ.
[2018-09-01 07:26] LABS: HEMATOCRIT 24.2 % (35.0-45.0); HEMOGLOBIN 8.4 g/dl (12.0-16.0); MEAN CORPUSCULAR HEMOGLOBIN 29.4 PG (27.0-31.0); MEAN CORPUSCULAR HGB CONC 34.7 % (33.0-36.5); MEAN CORPUSCULAR VOLUME 84.8 FL (78-98); MEAN PLATELET VOLUME 7.5 FL (7.4-10.4); PLATELET COUNT 111 X10'3 (140-440); RED BLOOD COUNT 2.85 X10'6 (4.20-5.60); WHITE BLOOD COUNT 1.5 X10'3 (4.5-11.0)
[2018-09-01 07:36] LABS: ALBUMIN 2.9 G/DL (3.4-5.0); ANION GAP 10 (8-16); BLOOD UREA NITROGEN 15 MG/DL (7-18); BUN/CREATININE RATIO 17.4 (6.6-38.0); CHLORIDE 101 MMOL/L (99-107); CREATININE 0.86 MG/DL (0.40-0.90); GLUCOSE 91 MG/DL (70-104); POTASSIUM 3.6 MMOL/L (3.5-5.1); SODIUM 138 MMOL/L (135-145); TOTAL CARBON DIOXIDE 27.3 MMOL/L (24-32); eGFR 65 ML/MIN
[2018-09-01] MEDS: enoxaparin 40mg/0.4ml syringe SUBCUT SCH (08:00)
[2018-09-01 08:30] VITALS: BP_SYST 137; BP_SYST 141; BP_SYST 157; BP_DIAS 70; BP_DIAS 83; BP_DIAS 88
[2018-09-01] MEDS: aspirin 81mg tablet.DR PO SCH (08:39)
[2018-09-01] MEDS: losartan 50mg tablet PO SCH (08:39)
[2018-09-01] MEDS: atorvastatin 20mg tablet PO SCH (08:39)
[2018-09-01] MEDS: HYDROchlorothiazide 12.5mg capsule PO SCH (08:40)
[2018-09-01] MEDS: metoprolol tartrate 50mg tablet PO SCH (08:44)
[2018-09-01] MEDS: clopidogrel 75mg tablet PO SCH (08:44)
[2018-09-01 09:06] LABS: TOTAL CELLS COUNTED 100
[2018-09-01 09:09] LABS: ANISOCYTOSIS 2+; PLATELET ESTIMATE DECREASED
[2018-09-01] MEDS ORDERED: filgrastim 300mcg inj SQ ONE (09:40)
--- NOTE | 2018-09-01 09:42 | NUR ---
PAGER ID: [phone] Re Enma Turcios in [phone]- daughter/caregiver at bedside requesting to speak w you.
[2018-09-01 10:00] VITALS: BP 141/70
[2018-09-01] MEDS ORDERED: LEVO500T89 PO (10:41)
[2018-09-01] MEDS ORDERED: levoFLOXACIN 500mg tablet PO SCH (11:00)
--- NOTE | 2018-09-01 13:34 | NUR ---
called in rx to [facility] [address] with pharmacy
== END 2018-09-01 13:20 | disposition home or self-care (01) | DRG 640 ==
LOC: ER 11:40 → ED HOLD 12:43 → ORTHO 4S 15:45
PROVIDERS: ADMIT Internal Medicine; ATTEND Family Medicine
PROC: 4A00X4Z Measurement of Central Nervous Electrical Activity, External Approach (ICD-10-PCS; principal; 2018-08-30)
DX: E86.0 Dehydration (principal); D61.810 Antineoplastic chemotherapy induced pancytopenia; N39.0 Urinary tract infection, site not specified; Z68.41 Body mass index [BMI] 40.0-44.9, adult; T45.1X5A Adverse effect of antineoplastic and immunosuppressive drugs, initial encounter; D63.8 Anemia in other chronic diseases classified elsewhere; C53.9 Malignant neoplasm of cervix uteri, unspecified; E78.00 Pure hypercholesterolemia, unspecified; I10 Essential (primary) hypertension; E11.9 Type 2 diabetes mellitus without complications; E66.9 Obesity, unspecified; E78.5 Hyperlipidemia, unspecified; F17.200 Nicotine dependence, unspecified, uncomplicated; B95.2 Enterococcus as the cause of diseases classified elsewhere; Z90.710 Acquired absence of both cervix and uterus; Z79.02 Long term (current) use of antithrombotics/antiplatelets; Z79.82 Long term (current) use of aspirin; Z86.73 Personal history of transient ischemic attack (TIA), and cerebral infarction without residual deficits; Z92.21 Personal history of antineoplastic chemotherapy; Z80.41 Family history of malignant neoplasm of ovary; Y92.89 Other specified places as the place of occurrence of the external cause
CPT/HCPCS: 36415; 70450; 70545; 70552; 71045; 80048; 80053; 80061; 81001; 83036; 84484; 85025; 85610; 85730; 87070; 87077; 87088; 87186; 92616; 93005; 93306; 93880; 95816; 97110; 97116; 97161; 97530; 99285; G0378; J0696; J1442; J1650; J2060; J2270; J2405; J3490; J7030

== ENCOUNTER 2018-11-14 11:25 | Inpatient (IN) | payer MEDICARE, MEDICAID ==
[~2018-11-14] VITALS: Ht 152.4 cm; Wt 94.0 kg
[~2018-11-14 11:25] MED LIST changes: -CLOP75TA16 PO; +CLOP75TA8 PO; +HYDR-4383 PO; -HYDR25TA4 PO; +LEVO500T89 PO; +LORA10CA9 PO; -NITR100C6 PO
[2018-11-14 13:33] LABS: BASOPHILS # (AUTO) 0.1 X10'3 (0-0.2); BASOPHILS % (AUTO) 0.8 % (0-1); EOSINOPHILS % (AUTO) 0.5 % (0-6); HEMATOCRIT 24.3 % (35.0-45.0); HEMOGLOBIN 8.2 g/dl (12.0-16.0); LYMPHOCYTES # (AUTO) 1.2 X10'3 (1.1-4.8); LYMPHOCYTES % (AUTO) 15.5 % (21-51); MEAN CORPUSCULAR HEMOGLOBIN 33.4 PG (27.0-31.0); MEAN CORPUSCULAR HGB CONC 33.9 g/dL (33.0-36.5); MEAN CORPUSCULAR VOLUME 98.5 FL (78-98); MEAN PLATELET VOLUME 6.5 FL (7.4-10.4); MONOCYTES # (AUTO) 0.7 X10'3 (0-0.9); MONOCYTES % (AUTO) 9.6 % (2-12); NEUTROPHILS # (AUTO) 5.5 X10'3 (1.8-7.7); NEUTROPHILS % (AUTO) 73.6 % (42-75); PLATELET COUNT 99 X10'3 (140-440); RED BLOOD COUNT 2.46 X10'6 (4.20-5.60); RED CELL DISTRIBUTION WIDTH 18.6 % (11.5-14.5); WHITE BLOOD COUNT 7.5 X10'3 (4.5-11.0)
[2018-11-14 13:49] LABS: PARTIAL THROMBOPLASTIN TIME 24 SECONDS (22-32); PROTHROMBIN TIME 10.5 SECONDS (9.0-12.0)
[2018-11-14 13:54] LABS: PLATELET ESTIMATE DECREASED; TOTAL CELLS COUNTED 100
[2018-11-14 13:55] LABS: ANISOCYTOSIS 2+
[2018-11-14 13:56] LABS: ALANINE AMINOTRANSFERASE 11 U/L (12-78); ALBUMIN/GLOBULIN RATIO 0.8 (1.1-1.5); ALKALINE PHOSPHATASE 91 IU/L (46-116); ANION GAP 5 (8-16); ASPARTATE AMINO TRANSFERASE 12 U/L (10-37); BILIRUBIN,TOTAL 0.4 MG/DL (0.1-1.0); BLOOD UREA NITROGEN 17 MG/DL (7-18); BUN/CREATININE RATIO 19.8 (6.6-38.0); CALCIUM 9.1 MG/DL (8.5-10.1); CHLORIDE 107 MMOL/L (99-107); CREATININE 0.86 MG/DL (0.40-0.90); GLUCOSE 90 MG/DL (70-104); POTASSIUM 4.2 MMOL/L (3.5-5.1); SODIUM 143 MMOL/L (135-145); TOTAL CARBON DIOXIDE 30.6 MMOL/L (24-32); TOTAL PROTEIN 6.6 G/DL (6.4-8.2); TOXIC GRANULATION 1+; eGFR 65 ML/MIN
[2018-11-14] MEDS ORDERED: heparin 10,000 units/1 ML INJ IV ONE ×2 (14:10→14:20)
[2018-11-14] MEDS ORDERED: heparin 10,000 units/1 ML INJ IV PRN (14:10)
[2018-11-14] MEDS ORDERED: heparin 25,000 UNIT/250ml bag 250 ML IV SCH (14:10)
[2018-11-14] MEDS ORDERED: magnesium 2GM in 50ml NS 50 ML IV PRN (15:30)
[2018-11-14] MEDS ORDERED: magnesium 4gm in 100ml NS 100 ML IV PRN (15:30)
[2018-11-14] MEDS ORDERED: mag hydrox/Alum hydrox/simeth 30ml oral suspension PO PRN (15:30)
[2018-11-14] MEDS ORDERED: magnesium hydroxide 30ml (MOM) UD suspension PO PRN (15:30)
[2018-11-14] MEDS ORDERED: ondansetron/PF 4mg/2ml inj IV PRN (15:30)
[2018-11-14] MEDS ORDERED: potassium Cl 20 mEq SR tablet PO PRN ×2 (15:30)
[2018-11-14] MEDS ORDERED: potassium Cl 40MEQ/NS 500ml 500 ML IV PRN ×2 (15:30)
[2018-11-14] MEDS ORDERED: acetaminophen 325mg tablet PO PRN ×2 (15:30)
[2018-11-14] MEDS ORDERED: morphine 4 MG/ML inj SYRINge IV PRN ×2 (15:30)
[2018-11-14] MEDS ORDERED: magnesium Cl slow-release 64mg tablet PO PRN (15:30)
[2018-11-14] MEDS ORDERED: HYDROcodone/acetaminophen 10/325mg tab PO PRN (15:30)
[2018-11-14] MEDS ORDERED: HYDROcodone/acetaminophen 5mg/325mg tablet PO PRN (15:30)
[2018-11-14] MEDS ORDERED: LORA10TA7 PO (15:45)
--- NOTE | 2018-11-14 17:42 | NUR ---
PT PLACED ON HOSPITAL BED FOR COMFORT, PT BEING MONITORED VIA DATA SME BUT REMOVED BP CUFF AND PULSE OX FOR PT COMFORT, PT FAMILY REMAINS AT BEDSIDE, PT ORIENTED TO ROOM AND CALL LIGHT.
--- NOTE | 2018-11-14 18:31 | NUR ---
SERGIO REN'Julianne PER HOSPITALIST. PT. WITH [employer].
[2018-11-14] MEDS: enoxaparin 30mg/0.3ml syringe SUBCUT SCH (20:00)
[2018-11-14] MEDS: enoxaparin 60mg/0.6ml syringe SUBCUT SCH (20:00)
[2018-11-14] MEDS: metoprolol tartrate 25mg tablet PO SCH (20:00)
[2018-11-14] MEDS ORDERED: atorvastatin 20mg tablet PO SCH (21:00)
--- NOTE | 2018-11-14 22:52 | NUR ---
Patient arrived to floor at 2205. A&O X4. 20G R FA SL. Stable at this time and will continue to monitor closely.
--- NOTE | 2018-11-14 22:57 | NUR ---
NUTRITION INTAKE INFORMATION UNDOCUMENTED BY NERY SANCHEZ. PT STATED SHE ATE ABOUT 75% OF HH DINNER. Addendum: 11/14/18 at 2258 by Guera Kiran RN Amended: Links added.
[2018-11-14 23:00] VITALS: BP 144/61
--- NOTE | 2018-11-14 23:00 | NUR ---
ASSESSMENT OF IV UNDOCUMENTED BY NERY SANCHEZ. PT ARRIVED ON UNIT WITH 20 G R LIONEL SNOWDEN. ASYMPTOMATIC AT THIS TIME. Addendum: 11/14/18 at 2301 by Guera Kiran RN Amended: Links added.
[2018-11-15 01:28] LABS: BASOPHILS % (AUTO) 0.8 % (0-1); EOSINOPHILS # (AUTO) 0.1 X10'3 (0-0.9); EOSINOPHILS % (AUTO) 0.9 % (0-6); HEMOGLOBIN 8.1 g/dl (12.0-16.0); LYMPHOCYTES # (AUTO) 1.3 X10'3 (1.1-4.8); LYMPHOCYTES % (AUTO) 22.3 % (21-51); MEAN CORPUSCULAR HEMOGLOBIN 33.3 PG (27.0-31.0); MEAN CORPUSCULAR HGB CONC 33.8 g/dL (33.0-36.5); MEAN CORPUSCULAR VOLUME 98.5 FL (78-98); MONOCYTES # (AUTO) 0.6 X10'3 (0-0.9); MONOCYTES % (AUTO) 9.6 % (2-12); NEUTROPHILS % (AUTO) 66.4 % (42-75); PLATELET COUNT 101 X10'3 (140-440); RED BLOOD COUNT 2.43 X10'6 (4.20-5.60); RED CELL DISTRIBUTION WIDTH 18.1 % (11.5-14.5)
[2018-11-15 01:31] LABS: ANION GAP 9 (8-16); BLOOD UREA NITROGEN 13 MG/DL (7-18); CALCIUM 9.2 MG/DL (8.5-10.1); CHLORIDE 107 MMOL/L (99-107); CREATININE 0.81 MG/DL (0.40-0.90); GLUCOSE 107 MG/DL (70-104); MAGNESIUM 1.5 MG/DL (1.5-2.4); SODIUM 142 MMOL/L (135-145); TOTAL CARBON DIOXIDE 25.8 MMOL/L (24-32); eGFR 70 ML/MIN
--- NOTE | 2018-11-15 01:48 | NUR ---
PAGER ID: [phone] MESSAGE: Manjit Kiran RN [id number] Tam in [id number] has PTT 25.4. Give Joanna HARVEY now? Addendum: 11/15/18 at 0149 by Guera Kiran RN Per Dr. Mercado will give Lovenovijay SQ now.
[2018-11-15 03:00] VITALS: BP 124/52
[2018-11-15] MEDS: enoxaparin 30mg/0.3ml syringe SUBCUT SCH (03:57)
[2018-11-15] MEDS: enoxaparin 60mg/0.6ml syringe SUBCUT SCH (03:58)
[2018-11-15] MEDS ORDERED: enoxaparin 60mg/0.6ml syringe SUBCUT SCH (04:36)
[2018-11-15] MEDS ORDERED: enoxaparin 30mg/0.3ml syringe SUBCUT SCH (04:37)
--- NOTE | 2018-11-15 06:27 | NUR ---
Problems reprioritized. Patient report given, questions answered & plan of care reviewed with LAURA Hicks.
--- NOTE | 2018-11-15 06:30 | NUR ---
Patient in room PCU 3014. I have received report from Hilario SANCHEZ/ Ingrid SANCHEZ and had the opportunity to ask questions and assume patient care.
--- NOTE | 2018-11-15 06:30 | NUR ---
[place] documentation: I have reviewed and agree with all interventions, assessments performed and documented by Bryant SANHCEZ. [place] Medication Administration: For this medication-pass time frame, all medication were reviewed, dispensed, administered and documented per hospital policy by Bryant SANCHEZ.
[2018-11-15 07:00] VITALS: BP 141/75
[2018-11-15] MEDS ORDERED: losartan 50mg tablet PO SCH (08:00)
[2018-11-15] MEDS ORDERED: aspirin 81mg tablet.DR PO SCH (08:00)
[2018-11-15] MEDS ORDERED: K and/or MAG REPLACEMENT MC SCH (08:00)
[2018-11-15] MEDS ORDERED: loratadine 10mg tablet PO SCH (08:00)
[2018-11-15] MEDS: metoprolol tartrate 25mg tablet PO SCH (08:31)
[2018-11-15 11:00] VITALS: BP 133/57
--- NOTE | 2018-11-15 11:26 | NUR ---
Malnutrition consult: Pt admit w/ clot in RLE. No significant wt loss hx prior admits, severe weakness, or edema outside clot area on RLE. PO meals currently pending but at this time pt lacks minimum 2 malnutrition criteria and does not qualify. Will monitor for PO hx and additional criteria this admit. Addendum: 11/15/18 at [address] Amended: Links added.
[2018-11-15] MEDS ORDERED: APIX5TAB3 PO (12:22)
[2018-11-15] MEDS ORDERED: apixaban 5mg tablet PO ONE (13:15)
--- NOTE | 2018-11-15 13:56 | NUR ---
Patient would like to make sure that when labs are drawn a small needle is used. Will make sure to convey that to lab if more labs are to be obtained.
--- NOTE | 2018-11-15 17:30 | NUR ---
Pt discharged home at 1645. Patient discharge education packet reviewed before signing and sent along with all patient belongings home with patient. Telemetry monitoring and PIV removed with cannula intact before discharge. Pt was stable at discharge and was wheeled down by staff and left with family via private vehicle home.
== END 2018-11-15 16:50 | disposition home health service (06) | DRG 300 ==
LOC: ER 11:26 → ED HOLD 15:26 → EDBEDREQ 21:16 → PCU 3S 22:10
PROVIDERS: ADMIT Hospitalist; ATTEND Hospitalist
DX: I82.431 Acute embolism and thrombosis of right popliteal vein (principal); D68.69 Other thrombophilia; I82.4Z1 Acute embolism and thrombosis of unspecified deep veins of right distal lower extremity; E11.9 Type 2 diabetes mellitus without complications; E78.00 Pure hypercholesterolemia, unspecified; I10 Essential (primary) hypertension; Z85.41 Personal history of malignant neoplasm of cervix uteri; Z85.42 Personal history of malignant neoplasm of other parts of uterus; Z86.718 Personal history of other venous thrombosis and embolism; Z86.73 Personal history of transient ischemic attack (TIA), and cerebral infarction without residual deficits; Z87.891 Personal history of nicotine dependence; Z90.710 Acquired absence of both cervix and uterus; Z92.21 Personal history of antineoplastic chemotherapy; Z79.899 Other long term (current) drug therapy; Z79.82 Long term (current) use of aspirin; Z79.02 Long term (current) use of antithrombotics/antiplatelets
CPT/HCPCS: 36415; 80048; 80053; 83735; 85025; 85610; 85730; 87070; 93306; 93970; 96374; 97116; 97162; 97530; 99285; G0378; J1644; J1650

== ENCOUNTER 2021-10-29 11:10 | Day surgery (SDC) | payer MEDICARE, MEDICAID ==
[~2021-10-29] VITALS: Ht 149.9 cm; Wt 94.8 kg
[~2021-10-29 11:10] MED LIST changes: +APIX5TAB3 PO; -CLOP75TA8 PO; -HYDR-4383 PO; -LEVO500T89 PO; +LOP25T PO; -LORA10CA9 PO; +LORA10TA7 PO; -METO25TA6 PO
[2021-10-29] MEDS ORDERED: APIX5TAB3 PO (11:49)
[2021-10-29] MEDS ORDERED: GABA-530 PO (11:49)
[2021-10-29] MEDS ORDERED: CHOL400T8 PO (11:49)
[2021-10-29] MEDS ORDERED: ASCO500C17 PO (11:49)
[2021-10-29] MEDS ORDERED: LIDOcaine 1% w/EPI 1:100,000 30ml vial (MDV) ONE (12:23)
[2021-10-29 12:25] VITALS: BP 147/66
[2021-10-29 13:15] VITALS: BP 130/69
== END 2021-10-29 13:45 | disposition home or self-care (01) ==
LOC: SSTAY O 11:10
PROVIDERS: ATTEND Preventive Medicine Aerospace Medicine
DX: Z45.2 Encounter for adjustment and management of vascular access device (principal); C54.9 Malignant neoplasm of corpus uteri, unspecified
CPT/HCPCS: 36590; J3490